=== PATIENT | female | born 1945 | race Caucasian/White ===

== ENCOUNTER 2023-10-07 10:40 | Inpatient (IN) | payer MEDICARE, OTHER ==
[~2023-10-07] VITALS: Ht 162.6 cm; Wt 94.8 kg
[2023-10-07 11:03] LABS: BASOPHILS # (AUTO) 0.1 K/uL (0.0-0.2); BASOPHILS % (AUTO) 0.8 % (0.0-2.0); EOSINOPHILS # (AUTO) 0.1 K/uL (0.0-0.7); EOSINOPHILS % (AUTO) 1.5 % (0.0-6.0); HEMATOCRIT 45 % (33-45); HEMOGLOBIN 14.6 g/dL (11.5-14.8); LYMPHOCYTES # (AUTO) 2.3 K/uL (0.8-4.8); LYMPHOCYTES % (AUTO) 27.4 % (20.0-44.0); MEAN CORPUSCULAR HEMOGLOBIN 27 PG (26.0-33.0); MEAN CORPUSCULAR HGB CONC 33 g/dl (31.0-36.0); MEAN CORPUSCULAR VOLUME 83 fL (82-100); MONOCYTES # (AUTO) 0.7 K/uL (0.1-1.30); MONOCYTES % (AUTO) 7.8 % (2.0-12.0); NEUTROPHILS # (AUTO) 5.2 K/uL (1.8-8.9); NEUTROPHILS % (AUTO) 62.5 % (43.0-81.0); PLATELET COUNT (AUTO) 273 K/uL (150-450); RED BLOOD CELL COUNT(AUTO) 5.38 MIL/uL (4.0-5.2); RED CELL DISTRIBUTION WIDTH 15.1 % (11.5-15.0); WHITE BLOOD COUNT (AUTO) 8.4 K/uL (4.3-11.0)
[2023-10-07 11:14] LABS: CALCIUM, SERUM 8.8 mg/dL (8.5-10.1); CARBON DIOXIDE 27 mmol/L (21-32); CHLORIDE 105 mmol/L (98-107); CREATININE 0.9 mg/dL (0.6-1.3); GLUCOSE 131 mg/dL (74-106); POTASSIUM 4.4 mmol/L (3.5-5.1); SODIUM SERUM 138 mmol/L (136-145); UREA NITROGEN, BLOOD 24 mg/dL (7-18)
[2023-10-07] MEDS ORDERED: MORPHINE SULFATE INJ 2 MG/ML DISP.SYRIN IV PRN (11:30)
[2023-10-07] MEDS ORDERED: MAG HYDROX/AL HYDROX/SIMETH 30 ML UDC PO PRN (11:30)
[2023-10-07] MEDS ORDERED: Z GUARD REMEDY 4 OZ OINT TP PRN (11:30)
[2023-10-07] MEDS ORDERED: ONDANSETRON HCL/PF 4 MG/2 ML VIAL IVP PRN (11:30)
[2023-10-07] MEDS ORDERED: NITROGLYCERIN 0.4 MG/TAB BOTTLE SL PRN (11:30)
[2023-10-07] MEDS ORDERED: MAGNESIUM HYDROXIDE 30 ML UDC PO PRN (11:30)
[2023-10-07] MEDS ORDERED: ACETAMINOPHEN 325 MG TABLET PO PRN (11:30)
[2023-10-07] MEDS ORDERED: MOUNJARO SQ (13:07)
[2023-10-07] MEDS ORDERED: POLY510P31 PO (13:07)
[2023-10-07] MEDS ORDERED: RIVA10TA PO (13:07)
[2023-10-07] MEDS ORDERED: FLEC50TA2 PO (13:07)
[2023-10-07] MEDS ORDERED: VALS80TA31 PO (13:07)
[2023-10-07] MEDS ORDERED: CLOT30SO2 TP (13:07)
[2023-10-07] MEDS ORDERED: LATA2.5D15 EACHEYE (13:07)
[2023-10-07] MEDS ORDERED: MAGN500T14 PO (13:07)
[2023-10-07] MEDS ORDERED: ATOR20TA PO (13:07)
[2023-10-07] MEDS ORDERED: FLUT1BLS15 IH (13:07)
[2023-10-07] MEDS ORDERED: DIFL15OI3 TP (13:07)
[2023-10-07] MEDS ORDERED: DICL100G34 TP (13:07)
[2023-10-07] MEDS ORDERED: DAPA10TA PO (13:07)
[2023-10-07] MEDS ORDERED: FLUO20CA42 PO (13:07)
[2023-10-07] MEDS ORDERED: METO-357 PO (13:07)
[2023-10-07] MEDS ORDERED: DOCU250C14 PO (13:07)
[2023-10-07] MEDS ORDERED: IBUPROFEN-FAMOTIDINE PO (13:07)
[2023-10-07] MEDS ORDERED: CHOL500062 PO (13:07)
[2023-10-07] MEDS ORDERED: OMEP20CA15 PO (13:07)
[2023-10-07] MEDS ORDERED: METF-836 PO (13:07)
[2023-10-07] MEDS: METOPROLOL TARTRATE 50 MG TABLET PO SCH (14:23)
[2023-10-07] MEDS: IV NS 0.9% 1,000 ML IV PRN (15:29)
[2023-10-07] MEDS ORDERED: IV NS 0.9% 250 ML IV ONE (15:33)
[2023-10-07] MEDS ORDERED: IOHEXOL-350 100 ML VIAL IV ONE (15:33)
[2023-10-07] MEDS ORDERED: CT SWABBABLE VALVE TRANS SET 1 EA INFUS.SET MC ONE (15:33)
[2023-10-07 16:00] VITALS: BP 120/59; TEMP 97.5; O2SAT 97
[2023-10-07] MEDS: NITROGLYCERIN 0.4 MG/TAB BOTTLE SL ONE (16:01)
[2023-10-07] MEDS: METOPROLOL TARTRATE INJ 5 MG/5 ML AMPUL IVP PRN (16:02)
[2023-10-07 20:00] VITALS: BP 120/67; TEMP 97.9; O2SAT 95
[2023-10-08] VITALS: BP 115/75; TEMP 97.7; O2SAT 98
[2023-10-08 01:19] VITALS: BP 115/75; TEMP 97.7; O2SAT 98
[2023-10-08 04:00] VITALS: BP 120/60; TEMP 97.9; O2SAT 98
[2023-10-08 06:54] VITALS: BP 120/60; TEMP 97.9; O2SAT 98
[2023-10-08 07:24] LABS: BASOPHILS % (AUTO) 0.5 % (0.0-2.0); EOSINOPHILS # (AUTO) 0.1 K/uL (0.0-0.7); EOSINOPHILS % (AUTO) 1.6 % (0.0-6.0); HEMATOCRIT 42 % (33-45); HEMOGLOBIN 13.6 g/dL (11.5-14.8); LYMPHOCYTES # (AUTO) 3.4 K/uL (0.8-4.8); LYMPHOCYTES % (AUTO) 37.6 % (20.0-44.0); MEAN CORPUSCULAR HEMOGLOBIN 28 PG (26.0-33.0); MEAN CORPUSCULAR HGB CONC 33 g/dl (31.0-36.0); MEAN CORPUSCULAR VOLUME 85 fL (82-100); MONOCYTES # (AUTO) 0.9 K/uL (0.1-1.30); MONOCYTES % (AUTO) 9.5 % (2.0-12.0); NEUTROPHILS # (AUTO) 4.5 K/uL (1.8-8.9); NEUTROPHILS % (AUTO) 50.8 % (43.0-81.0); PLATELET COUNT (AUTO) 235 K/uL (150-450); RED BLOOD CELL COUNT(AUTO) 4.86 MIL/uL (4.0-5.2); RED CELL DISTRIBUTION WIDTH 15.7 % (11.5-15.0)
[2023-10-08 07:56] LABS: CREATININE 0.8 mg/dL (0.6-1.3); MAGNESIUM 2.4 mg/dL (1.8-2.4); PHOSPHORUS 3.7 mg/dL (2.5-4.9); POTASSIUM 4.7 mmol/L (3.5-5.1)
[2023-10-08 08:00] VITALS: BP 129/57; TEMP 97.8; O2SAT 100
[2023-10-08 08:35] LABS: THYROID STIMULATING HORMONE 2.267 uIU/mL (0.358-3.74)
[2023-10-08] MEDS ORDERED: METOPROLOL SUCCINATE 50 MG TAB.SR.24H PO SCH (09:00)
[2023-10-08] MEDS ORDERED: FLECAINIDE ACETATE 50 MG TABLET PO SCH (09:00)
[2023-10-08] MEDS ORDERED: METFORMIN HCL 1000 MG PO SCH (09:00)
[2023-10-08] MEDS: FLUOXETINE HCL 20 MG CAPSULE PO SCH (09:33)
[2023-10-08] MEDS: ATORVASTATIN 10 MG TABLET PO SCH (09:33)
[2023-10-08] MEDS: FLECAINIDE ACETATE (100 MG) 100 MG TABLET PO SCH (09:34)
[2023-10-08 09:35] VITALS: BP 132/63
[2023-10-08] MEDS: VALSARTAN 80 MG TABLET PO SCH (09:35)
[2023-10-08] MEDS: RIVAROXABAN 10 MG TABLET PO SCH (09:38)
[2023-10-08] MEDS: DAPAGLIFLOZIN PROPANEDIOL 5 MG TABLET PO SCH (09:42)
[2023-10-08] MEDS: LATANOPROST EYE DROP 0.005% 2.5 ML BOTTLE EACHEYE SCH (09:43)
[2023-10-09] MEDS ORDERED: PANTOPRAZOLE 40 MG TABLET.DR PO SCH (07:30)
== END 2023-10-08 18:04 | disposition home or self-care (01) | DRG 206 ==
LOC: ER 10:43 → EDBD 10:43 → TELE 13:15 → MED 10-08 13:16
PROVIDERS: ADMIT Internal Medicine; ATTEND Internal Medicine
DX: M94.0 Chondrocostal junction syndrome [Tietze] (principal); E11.9 Type 2 diabetes mellitus without complications; E66.9 Obesity, unspecified; E78.5 Hyperlipidemia, unspecified; I10 Essential (primary) hypertension; I48.91 Unspecified atrial fibrillation; Z79.01 Long term (current) use of anticoagulants; Z87.891 Personal history of nicotine dependence; R00.2 Palpitations; G47.33 Obstructive sleep apnea (adult) (pediatric); Z68.35 Body mass index [BMI] 35.0-35.9, adult; I25.10 Atherosclerotic heart disease of native coronary artery without angina pectoris; Z79.84 Long term (current) use of oral hypoglycemic drugs
CPT/HCPCS: 36415; 71045-TC; 75574; 80048-TC; 80061-TC; 83735-TC; 84100-TC; 84439-TC; 84443-TC; 84484-TC; 85025-TC; 93307-TC; A4223; G0378; J7030; J7050; Q9967